=== PATIENT | male | born 1960 | race American Indian/Alaskan Native ===

== ENCOUNTER → 2024-05-08 07:59 | Outpatient (REF) | payer BC, SELFPAY ==
[2024-05-08 10:26] LABS: ALT (SGPT) 20 U/L (0-50); AST (SGOT) 28 U/L (17-59); Albumin 4.3 g/dl (3.5-5.0); Alkaline Phosphatase 65 U/L (38-126); Blood Urea Nitrogen 14 mg/dl (9-20); Calcium 9.3 mg/dl (8.4-10.2); Carbon Dioxide 26 mmol/L (22-30); Chloride 103 mmol/L (98-107); Glucose 130 mg/dl (70-99); HDL Cholesterol 69 mg/dl; LDL Cholesterol, Calculated 65 mg/dl; Potassium 4.4 mmol/L (3.5-5.1); Sodium 138 mmol/L (135-145); Total Bilirubin 0.5 mg/dl (0.2-1.3); Total Cholesterol 150 mg/dl (50-199); Total Protein 6.9 g/dl (6.3-8.2); Triglyceride 81 mg/dl (10-149); Very Low Density Lipoprotein 16 mg/dl (0-30); eGFR > 60.00
[2024-05-08 10:48] LABS: Microalbumin, Random Urine 1.3 mg/dl (0.6-1.7); Microalbumin/creatinine Ratio 16.3 mg/g
[2024-05-08 12:37] LABS: Glycohemoglobin (HgbA1c) 7.1 % (4.0-5.6)
== END ==
LOC: HWLAB 07:59
PROVIDERS: ATTENDING PHYSICIAN Internal Medicine Endocrinology, Diabetes & Metabolism; FAMILY PHYSICIAN Internal Medicine
DX: E11.9 Type 2 diabetes mellitus without complications (principal)
CPT/HCPCS: 36415; 80053; 80061; 82043; 82570; 83036

== ENCOUNTER → 2024-12-14 09:29 | Outpatient (REF) | payer OTHER, SELFPAY ==
[2024-12-14 12:59] LABS: PSA, Total - Diagnostic 2.82 ng/ml (0.0-4.0)
== END ==
LOC: HWLAB 09:29
PROVIDERS: ATTENDING PHYSICIAN Internal Medicine
DX: R35.1 Nocturia (principal)
CPT/HCPCS: 36415; 84153

== ENCOUNTER 2025-02-26 18:39 | Emergency (ER) | payer OTHER, SELFPAY ==
[2025-02-26 18:43] VITALS: BP 167/89
[2025-02-26 19:03] LABS: % Basophils 0.4 % (0-2); % Eosinophils 3.2 % (0-6); % Immature Granulocytes 0.3 % (0-0.5); % Lymphocytes 29.6 % (20.5-51.1); % Monocytes 8.4 % (1.7-9.3); % Neutrophils 58.1 % (42.2-75.2); Absolute Eosinophils 0.2 10^3/uL (0-0.7); Absolute Lymphocytes 2.2 10^3/uL (1.2-3.4); Absolute Monocytes 0.6 10^3/uL (0.1-0.6); Absolute Neutrophils 4.3 10^3/uL (1.4-6.5); Hematocrit 41.3 % (39.0-52.0); Hemoglobin 13.6 g/dL (13.0-18.0); Mean Corp Hgb Conc. 32.9 g/dL (33.0-37.0); Mean Corpuscular Hgb 29.5 pg (27.0-31.0); Mean Corpuscular Volume 89.6 fL (80.0-94.0); Mean Platelet Volume 9.6 fL (7.4-10.4); Nucleated Red Blood Cells % 0 % (-); Platelet Count 275 10^3/uL (130-400); Red Blood Cell Count 4.61 10^6/uL (4.70-6.10); Red Cell Dist. Width 11.7 % (11.5-14.5); White Blood Cell Count 7.5 10^3/uL (4.8-10.8)
[2025-02-26 19:19] LABS: ALT (SGPT) 21 U/L (0-50); AST (SGOT) 22 U/L (17-59); Albumin 4.2 g/dl (3.5-5.0); Alkaline Phosphatase 84 U/L (38-126); Blood Urea Nitrogen 15 mg/dl (9-20); Calcium 9.8 mg/dl (8.4-10.2); Carbon Dioxide 30 mmol/L (22-30); Chloride 100 mmol/L (98-107); Glucose 151 mg/dl (70-99); Potassium 4.3 mmol/L (3.5-5.1); Sodium 139 mmol/L (135-145); Total Bilirubin 0.5 mg/dl (0.2-1.3); eGFR > 60.00
[2025-02-26 19:27] LABS: Troponin I < 0.012 ng/ml
--- NOTE | 2025-02-26 21:57 | ED.GENMED ---
History of Present Illness
<Shavon Arevalo PA-C - Last Filed: 02/26/25 22:02>
General
Chief Complaint: Cardiac Symptoms
Source: patient
Exam Limitations: none
Time Seen by Provider: 02/26/25 21:43
History of Present Illness
History of Present Illness:
64yoM with a history of type 2 diabetes and asthma presenting with his for evaluation of chest discomfort. Patient has had intermittent left-sided chest tightness over the past 3 weeks. Pain seems to occur when he is working from home and
sitting. The pain can last all day. He did take aspirin a few days ago which helped the pain. Pain to his left shoulder and left back. He denies any chest pain at this time. He has been going to the gym more often recently and denies any chest
pain with exercise. He does report some shortness of breath while walking and states he walks about 3-4 miles a day. He is otherwise asymptomatic and denies any shortness of breath, pleuritic pain, diaphoresis, nausea, vomiting, leg swelling. He
was seen at urgent care prior to arrival and was sent to the ED for evaluation. 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
Past History
<Shavon Arevalo PA-C - Last Filed: 02/26/25 22:02>
Past History
ED Past Medical History: Asthma and NIDDM
ED Past Surgical History: None
Patient has exhibited threatening behavior?: No
Social History
Personal:
Living: with family
Phy Exam
<Shavon Arevalo PA-C - Last Filed: 02/26/25 22:02>
General Physical Exam
General Presentation: well appearing and no apparent distress
General age: appears stated age
General Skin: warm and dry
General Habitus: normal
General Mental: alert
ENT Exam
ENT Exam: normocephalic
Cardiovascular Exam
Cardiovascular Exam: regular rate/rhythm, no edema, no murmur and normal peripheral pulses (2+ radial and DP pulses bilaterally)
Pulmonary Exam
Pulmonary Exam: lungs clear, no respiratory distress, no rales, no crackles, no rhonchi and no wheezing
Neurological Exam
Neurological Exam: alert
[place] Coma Scale
Eye Opening: Spontaneous
Verbal Response: Oriented
Motor Response: Obeys Commands
GCS Total Score: 15
Skin Exam
Skin Exam: normal color and warm/dry
Psychiatric Exam
Psychiatric Exam: normal mood/affect
<Tony Guo PA-C - Last Filed: 02/27/25 01:26>
[place] Coma Scale
GCS Total Score: 15
<Robert Vega DO - Last Filed: 02/27/25 14:04>
[place] Coma Scale
GCS Total Score: 15
Course
<Shavon Arevalo PA-C - Last Filed: 02/26/25 22:02>
Orders/Labs/Results
Orders:
Orders
02/26/25 18:40
ECG [Electrocardiogram (*1)] Urgent
Reason for Study: Chest Pain
EKG- Treatment ONCE
02/26/25 18:52
Complete Blood Count/With Diff Urgent
Comprehensive Metabolic Panel Urgent
Troponin I Urgent
02/26/25 21:56
Electrocardiogram (*1) Urgent
Reason for Study: Chest Pain
Cardiac Monitoring- Treatment ONCE
EKG- Treatment ONCE
02/26/25 22:13
D-Dimer Urgent
Troponin I Urgent
02/26/25 22:47
CT Chest PE Study Urgent
Comment:
Reason For Exam: Chest pain, elevated D-dimer
Abnormal Lab Results
02/26/25 02/26/25
18:52 22:13
RBC 4.61 L 10^6/uL
(4.70-6.10)
MCHC 32.9 L g/dL
(33.0-37.0)
D-Dimer 0.63 H ug/mlFEU
(0.00-0.50)
Glucose 151 H mg/dl
(70-99)
02/26/25 18:52
02/26/25 18:52
Vital Signs
Initial and Last Documented VS:
Initial Vital Signs
Temp Pulse Resp BP Pulse Ox
97.8 F 68 18 167/89 99
02/26/25 18:43 02/26/25 18:43 02/26/25 18:43 02/26/25 18:43 02/26/25 18:43
Last Documented Vital Signs
Temp Pulse Resp BP Pulse Ox
97.8 F 65 17 125/71 98
02/26/25 18:43 02/27/25 00:15 02/27/25 00:15 02/26/25 23:00 02/27/25 00:15
<Tony Guo PA-C - Last Filed: 02/27/25 01:26>
Orders/Labs/Results
Orders:
Orders
02/26/25 18:40
ECG [Electrocardiogram (*1)] Urgent
Reason for Study: Chest Pain
EKG- Treatment ONCE
02/26/25 18:52
Complete Blood Count/With Diff Urgent
Comprehensive Metabolic Panel Urgent
Troponin I Urgent
02/26/25 21:56
Electrocardiogram (*1) Urgent
Reason for Study: Chest Pain
Cardiac Monitoring- Treatment ONCE
EKG- Treatment ONCE
02/26/25 22:13
D-Dimer Urgent
Troponin I Urgent
02/26/25 22:47
CT Chest PE Study Urgent
Comment:
Reason For Exam: Chest pain, elevated D-dimer
Abnormal Lab Results
02/26/25 02/26/25
18:52 22:13
RBC 4.61 L 10^6/uL
(4.70-6.10)
MCHC 32.9 L g/dL
(33.0-37.0)
D-Dimer 0.63 H ug/mlFEU
(0.00-0.50)
Glucose 151 H mg/dl
(70-99)
02/26/25 18:52
02/26/25 18:52
Vital Signs
Initial and Last Documented VS:
Initial Vital Signs
Temp Pulse Resp BP Pulse Ox
97.8 F 68 18 167/89 99
02/26/25 18:43 02/26/25 18:43 02/26/25 18:43 02/26/25 18:43 02/26/25 18:43
Last Documented Vital Signs
Temp Pulse Resp BP Pulse Ox
97.8 F 65 17 125/71 98
02/26/25 18:43 02/27/25 00:15 02/27/25 00:15 02/26/25 23:00 02/27/25 00:15
Oscarlt;Robert Vega, DO - Last Filed: 02/27/25 14:04>
Orders/Labs/Results
Orders:
Orders
02/26/25 18:40
ECG [Electrocardiogram (*1)] Urgent
Reason for Study: Chest Pain
EKG- Treatment ONCE
02/26/25 18:52
Complete Blood Count/With Diff Urgent
Comprehensive Metabolic Panel Urgent
Troponin I Urgent
02/26/25 21:56
Electrocardiogram (*1) Urgent
Reason for Study: Chest Pain
Cardiac Monitoring- Treatment ONCE
EKG- Treatment ONCE
02/26/25 22:13
D-Dimer Urgent
Troponin I Urgent
02/26/25 22:47
CT Chest PE Study Urgent
Comment:
Reason For Exam: Chest pain, elevated D-dimer
Abnormal Lab Results
02/26/25 02/26/25
18:52 22:13
RBC 4.61 L 10^6/uL
(4.70-6.10)
MCHC 32.9 L g/dL
(33.0-37.0)
D-Dimer 0.63 H ug/mlFEU
(0.00-0.50)
Glucose 151 H mg/dl
(70-99)
02/26/25 18:52
02/26/25 18:52
Vital Signs
Initial and Last Documented VS:
Initial Vital Signs
Temp Pulse Resp BP Pulse Ox
97.8 F 68 18 167/89 99
02/26/25 18:43 02/26/25 18:43 02/26/25 18:43 02/26/25 18:43 02/26/25 18:43
Last Documented Vital Signs
Temp Pulse Resp BP Pulse Ox
97.8 F 65 17 125/71 98
02/26/25 18:43 02/27/25 00:15 02/27/25 00:15 02/26/25 23:00 02/27/25 00:15
Oscarlt;Shavon Arevalo PA-C - Last Filed: 02/26/25 22:02>
MDM/Problems Addressed
Differential Diagnosis Includes:
64yoM here with intermittent chest tightness and L shoulder/upper back pain x 3 weeks. Denies exertional or pleuritic symptoms. No diaphoresis or nausea. Sent by urgent care. He is mildly hypertensive with otherwise normal vital signs. He is
well-appearing in no acute distress. Exam is reassuring with equal pulses in all extremities. Differential diagnosis includes but is not limited to: ACS, angina, PE, musculoskeletal, pericarditis, nonspecific chest pain
Initial ED plan: Cardiac labs and EKG obtained in triage. EKG shows normal sinus rhythm with no ischemic changes and troponin within normal limits. Will check D-dimer, delta troponin and EKG, and chest x-ray versus CTA chest depending on D-dimer
results.
<Shavon Arevalo PA-C - Last Filed: 02/26/25 22:02>
*EKG
Interpreted by ED Provider?: Yes
EKG Intrepretation Date: 02/26/25
Heart Rate: 66
Rate: normal
Rhythm: sinus
[place]: normal axis
Interval: normal interval
QRS Pattern: right bundle branch block (incomplete)
Ischemia: no ischemia
<Tony Guo PA-C - Last Filed: 02/27/25 01:26>
*Critical Care Note
Total Time (30-74mins, 75-104mins- exclusive of procedures): Not Applicable
<Tony Guo PA-C - Last Filed: 02/27/25 01:26>
Patient Management
Escalation/DeEscalation of care consider admission/obs:
12 AM: Patient received in signout pending CTA chest results. There are no abnormalities found on the CTA. I reviewed the CT findings as well as the remainder of the workup with patient. Stable for discharge home, outpatient follow-up with
primary care provider. Patient aware of return precautions to the ER.
ED Attending Note
<Shavon Arevalo PA-C - Last Filed: 02/26/25 22:02>
-
Portions of this chart may have been created with voice recognition software.� Occasional wrong word or��sound alike� substitutions may have occurred due to the inherent limitations of voice recognition software.
Discharge Plan
Departure
Patient Disposition: Home (Routine Discharge)
Date of Disposition: 02/27/25
Time of Disposition: 00:37
Patient with high blood pressure during this ER visit?: Yes
Discharge Problem:
Chest pain
Instructions: Chest Pain (DC)
Referrals:
Emmanuel Weeks MD [Family Provider] -
Interventions
Interventions:
*Risk Screen - Suicide Last Done: 02/26/25 18:46
*General Assessment Last Done: 02/26/25 18:45
*Neglect/Abuse Screening Last Done: 02/26/25 18:46
*ED- Fall Risk Assessment Last Done: 02/26/25 21:52
*ED COVID-19 Vaccine History Last Done: 02/26/25 18:45
*Nursing Disposition Last Done: 02/27/25 01:10
ED- Pulmonary Assessment Last Done: 02/26/25 21:52
ED- Cardiac Assessment Last Done: 02/26/25 21:52
Discharge Date and Time
Discharge Date/Time: 02/27/25 01:10
Print Language: PAKIST[place]
[2025-02-26 22:00] VITALS: BP 148/87
[2025-02-26 22:01] VITALS: BMI 19.3
[2025-02-26 22:38] LABS: D-Dimer 0.63 ug/mlFEU (0.00-0.50)
[2025-02-26 22:50] LABS: Troponin I < 0.012 ng/ml
[2025-02-26 23:00] VITALS: BP 125/71
== END 2025-02-27 01:10 | disposition home or self-care (01) ==
LOC: EMR 18:39
PROVIDERS: Emergency Medicine; Physician Assistant; EMERGENCY PHYSICIAN Emergency Medicine; FAMILY PHYSICIAN Internal Medicine
DX: R07.89 Other chest pain (principal); E11.9 Type 2 diabetes mellitus without complications; J45.909 Unspecified asthma, uncomplicated
CPT/HCPCS: 99284; 71275; 80053; 84484; 85025; 85379; 93005; Q9967